=== PATIENT | male | born 1950 | race Caucasian/White ===

== ENCOUNTER → 2020-02-01 10:45 | Outpatient (BNVA) | payer MEDICARE, MEDICAID, SELFPAY | PROVIDERS: Family Provider Urology; PCP Student in an Organized Health Care Education/Training Program; Visit Provider Urology | DX: C61 Malignant neoplasm of prostate (principal); G80.9 Cerebral palsy, unspecified | CPT/HCPCS: 81001; 84153 ==

== ENCOUNTER → 2020-08-02 10:45 | Outpatient (BNVA) | payer MEDICARE, MEDICAID, SELFPAY | PROVIDERS: Family Provider Urology; PCP Student in an Organized Health Care Education/Training Program; Visit Provider Urology | DX: C61 Malignant neoplasm of prostate (principal) | CPT/HCPCS: 81003; 84153 ==

== ENCOUNTER → 2021-02-07 11:15 | Outpatient (BNVA) | payer MEDICARE, MEDICAID, SELFPAY | PROVIDERS: Family Provider Urology; PCP Student in an Organized Health Care Education/Training Program; Visit Provider Urology | DX: C61 Malignant neoplasm of prostate (principal); N39.9 Disorder of urinary system, unspecified | CPT/HCPCS: 81003; 84153 ==

== ENCOUNTER 2021-08-12 09:16 | Outpatient (CLI) | payer MEDICARE, MEDICAID, SELFPAY | END 2021-08-12 09:17 | disposition home or self-care (01) | LOC: LAB 09:20 | PROVIDERS: PCP Student in an Organized Health Care Education/Training Program; Visit Provider Urology | DX: C61 Malignant neoplasm of prostate (principal) | CPT/HCPCS: 81003; 84153 ==

== ENCOUNTER → 2021-12-12 10:27 | Outpatient (BNVA) | payer MEDICARE, MEDICAID, SELFPAY | PROVIDERS: PCP Student in an Organized Health Care Education/Training Program; Visit Provider Urology | DX: C61 Malignant neoplasm of prostate (principal); N39.3 Stress incontinence (female) (male); G80.9 Cerebral palsy, unspecified; N52.32 Erectile dysfunction following radical cystectomy | CPT/HCPCS: 81003; 84153 ==

== ENCOUNTER → 2022-06-09 13:15 | Outpatient (BNVA) | payer MEDICARE, MEDICAID, SELFPAY | PROVIDERS: PCP Student in an Organized Health Care Education/Training Program; Visit Provider Student in an Organized Health Care Education/Training Program | DX: S76.102A Unspecified injury of left quadriceps muscle, fascia and tendon, initial encounter; X58.XXXA Exposure to other specified factors, initial encounter; G80.9 Cerebral palsy, unspecified | CPT/HCPCS: 99203 ==

== ENCOUNTER 2022-06-16 11:47 | Outpatient (CLI) | payer MEDICARE, MEDICAID, SELFPAY ==
[2022-06-16 12:56] LABS: Prostate Specific AG Urology 9.87 ng/mL (0-4)
== END 2022-06-16 11:48 | disposition home or self-care (01) ==
LOC: LAB 11:52
PROVIDERS: PCP Student in an Organized Health Care Education/Training Program; Visit Provider Urology
DX: C61 Malignant neoplasm of prostate (principal); R31.0 Gross hematuria; N30.40 Irradiation cystitis without hematuria; G80.9 Cerebral palsy, unspecified; N39.3 Stress incontinence (female) (male); N52.31 Erectile dysfunction following radical prostatectomy
CPT/HCPCS: 52000; 81003; 84153; 87086; 88112; 99214

== ENCOUNTER 2022-06-23 15:37 | Oncology outpatient (recurring) (ONCR) | payer MEDICARE, MEDICAID, SELFPAY | END 2022-06-23 23:59 | disposition home or self-care (01) | LOC: ONCMED 15:43 | PROVIDERS: PCP Student in an Organized Health Care Education/Training Program; Visit Provider Internal Medicine Hematology & Oncology | DX: Z85.46 Personal history of malignant neoplasm of prostate (principal); R97.21 Rising PSA following treatment for malignant neoplasm of prostate; Z92.3 Personal history of irradiation; Z90.79 Acquired absence of other genital organ(s) | CPT/HCPCS: 99204 ==

== ENCOUNTER → 2022-08-04 12:57 | Outpatient (BNVA) | payer MEDICARE, MEDICAID, SELFPAY | PROVIDERS: PCP Student in an Organized Health Care Education/Training Program; Visit Provider Student in an Organized Health Care Education/Training Program | DX: S76.102A Unspecified injury of left quadriceps muscle, fascia and tendon, initial encounter (principal); X58.XXXA Exposure to other specified factors, initial encounter; G80.9 Cerebral palsy, unspecified | CPT/HCPCS: 99213 ==

== ENCOUNTER → 2022-08-22 08:06 | Outpatient (BNVA) | payer MEDICARE, MEDICAID, SELFPAY | PROVIDERS: PCP Student in an Organized Health Care Education/Training Program; Visit Provider Student in an Organized Health Care Education/Training Program | DX: G80.9 Cerebral palsy, unspecified (principal); S76.101A Unspecified injury of right quadriceps muscle, fascia and tendon, initial encounter; X58.XXXA Exposure to other specified factors, initial encounter | CPT/HCPCS: 99214 ==

== ENCOUNTER 2022-09-29 13:02 | Oncology outpatient (recurring) (ONCR) | payer MEDICARE, MEDICAID, SELFPAY ==
[2022-09-29 13:33] LABS: Basophils # 0.1 10^3/uL (0.0-0.1); Basophils % 0.6 %; Eosinophils # 0.3 10^3/uL (0.0-0.8); Eosinophils % 3.5 %; Hematocrit 47.9 % (42.0-52.0); Hemoglobin 16.5 g/dL (11.7-16.6); Lymphocytes # 1.8 10^3/uL (0.8-4.8); Lymphocytes % 21.5 %; Mean Corpuscular HGB Conc 34.4 g/dL (30.0-36.0); Mean Corpuscular Hemoglobin 32.7 pg (28.0-34.0); Mean Corpuscular Volume 94.9 fl (80-94); Mean Platelet Volume 9.7 fL (7.4-10.4); Monocytes # 0.7 10^3/uL (0.2-0.9); Monocytes % 8.8 %; Neutrophils # 5.39 10^3/uL (1.8-7.7); Neutrophils % 65.4 %; Nucleated Red Blood Cells % 0 %; Platelet Count 288 10^3/cmm (130-400); Red Blood Count 5.05 10^6/uL (4.1-5.3); Red Cell Distribution Width 12.8 % (12.1-15.1); White Blood Count 8.3 10^3/uL (4.0-10.0)
[2022-09-29 14:01] LABS: Alanine Aminotransferase 21 U/L (0-41); Alkaline Phosphatase 150 U/L (40-130); Anion Gap 13.9 (5-19); Aspartate Amino Transferase 22 U/L (0-40); Blood Urea Nitrogen 5 mg/dL (8-23); Calcium 9.2 mg/dL (8.5-10.5); Carbon Dioxide 24 mmol/L (22-29); Chloride 98 mmol/L (98-107); Globulin 2.4 g/dL (1.3-4.6); Glucose 99 mg/dL (65-115); Osmolality Calculated 271 mOsm/kg (285-295); Potassium 3.9 mmol/L (3.5-5.1); Sodium 132 mmol/L (136-145); Testosterone Total 259.9 ng/dL (193-740); Total Bilirubin 0.5 mg/dL (0.15-1.2); Total Protein 6.4 g/dL (6.6-8.7)
== END 2022-10-21 23:59 | disposition home or self-care (01) ==
PROVIDERS: PCP Student in an Organized Health Care Education/Training Program; Visit Provider Internal Medicine Hematology & Oncology
DX: C61 Malignant neoplasm of prostate (principal); C79.51 Secondary malignant neoplasm of bone; R91.1 Solitary pulmonary nodule; R19.09 Other intra-abdominal and pelvic swelling, mass and lump; Z79.52 Long term (current) use of systemic steroids; Z79.818 Long term (current) use of other agents affecting estrogen receptors and estrogen levels; Z79.899 Other long term (current) drug therapy; Z92.21 Personal history of antineoplastic chemotherapy; Z92.3 Personal history of irradiation
CPT/HCPCS: 36415; 80053; 84153; 84403; 85025; 99214

== ENCOUNTER 2024-04-14 10:38 | Oncology outpatient (recurring) (ONCR) | payer MEDICARE, MEDICAID, SELFPAY ==
[2024-04-14 11:11] LABS: Basophils % 0.3 %; Eosinophils # 0.4 10^3/uL (0.0-0.8); Eosinophils % 3.5 %; Hematocrit 45.9 % (37-53); Lymphocytes # 1.3 10^3/uL (0.8-4.8); Mean Corpuscular HGB Conc 34.2 g/dL (30-55); Mean Corpuscular Hemoglobin 32.2 pg (27-33); Mean Corpuscular Volume 94.1 fl (82-101); Mean Platelet Volume 9.3 fL (7.4-10.4); Monocytes # 0.6 10^3/uL (0.2-0.9); Monocytes % 4.6 %; Neutrophils # 10.19 10^3/uL (1.8-7.7); Neutrophils % 81.2 %; Nucleated Red Blood Cells % 0 %; Platelet Count 347 10^3/cmm (157-399); Red Blood Count 4.88 10^6/uL (3.85-5.65); White Blood Count 12.56 10^3/uL (3.29-11.43)
[2024-04-14 11:46] LABS: Alanine Aminotransferase 23 U/L (0-41); Albumin Level 3.9 g/dL (3.5-5.2); Alkaline Phosphatase 162 U/L (40-130); Anion Gap 19.8 (5-19); Aspartate Amino Transferase 20 U/L (0-40); Blood Urea Nitrogen 10 mg/dL (8-23); Calcium 8.6 mg/dL (8.5-10.5); Carbon Dioxide 22 mmol/L (22-29); Chloride 101 mmol/L (98-107); Creatinine Clr Calc Pharmacy 71.6247; Globulin 3.1 g/dL (1.3-4.6); Glucose 116 mg/dL (65-115); Osmolality Calculated 286 mOsm/kg (285-295); Potassium 4.8 mmol/L (3.5-5.1); Sodium 138 mmol/L (136-145); Testosterone Total 469.8 ng/dL (193-740); Total Bilirubin 0.3 mg/dL (0.15-1.2)
== END 2024-04-23 23:59 | disposition home or self-care (01) ==
PROVIDERS: PCP Student in an Organized Health Care Education/Training Program; Visit Provider Internal Medicine Medical Oncology
DX: C61 Malignant neoplasm of prostate (principal); N50.89 Other specified disorders of the male genital organs; R39.198 Other difficulties with micturition; Z92.3 Personal history of irradiation
CPT/HCPCS: 36415; 76857; 76870; 80053; 84153; 84403; 85025; 99214

== ENCOUNTER 2024-04-14 12:14 | Outpatient (CLI) | payer MEDICARE, MEDICAID, SELFPAY ==
--- NOTE | 2024-04-14 15:45 | US_ITS ---
WS: [id number] TESTICULAR ULTRASOUND HISTORY: bilateral scrotal swelling COMPARISON: PET/CT 09/19/2022 TECHNIQUE: Real-time and color Doppler imaging or utilized to perform a testicular ultrasound. Right testicle: 2.3 cm x 3.6 cm x 1.6 cm. Mild heterogeneity throughout the testicle. No mass. Very little color Doppler is demonstrated within the central testicle. There is normal color Doppler in the periphery. No significant hydrocele. Right epididymis: Normal epididymis with no increased vascularity. Left testicle: 1.9 cm x 2.8 cm x 1.5 cm. Mildly heterogeneous testicle. No mass. Very little color Doppler is demonstrated within the central testicle. Only flow identified in the periphery. No significant hydrocele. Left epididymis: Poorly visualized epididymis. There is diffuse bilateral scrotal wall thickening. [employer] Supervisor was concerned for inguinal hernia con taining GI tract. The imaging submitted does not support this. On this imaging I cannot confirm there is a scrotal hernia containing GI tract. US/US scrotum [id number] IMPRESSION: 1. Very limited and suboptimal evaluation of the scrotum. 2. Very limited color Doppler within the central portion of each testicle. Per ipheral Doppler is demonstrated. This can be seen with poor imaging technique v ersus partial or intermittent torsion. No mass. 3. Diffuse mild scrotal wall thickening. 4. [employer] Plant Supervisor described scrotal hernia containing bowel. The imaging does not support hernia containing bowel. There may be an omental hernia. 5. Recommendation: Short-term follow-up scrotal ultrasound to better demonstra te possible scrotal wall hernia containing GI tract and color Doppler interroga tion of the testicles.
--- NOTE | 2024-04-14 15:45 | US_ITS ---
WS: [id number] URINARY BLADDER ULTRASOUND HISTORY: prostate cancer; difficulty voiding COMPARISON: None available. Urinary bladder is well distended. No intraluminal filling defect. No free fluid adjacent to the urin sydni bladder. Bladder Wall Thickness: 0.3 cm. Bladder Prevoid: 6.9 cm x 7.0 cm x 7.1 cm. Prevoid volume: 180.7 ml. Postvoid volume: 32 ml. US/US bladder [id number] IMPRESSION: 1. No mass in the urinary bladder. 2. Minimal post void residual. No significant residual after voiding.
== END 2024-04-14 12:15 | disposition home or self-care (01) ==
PROVIDERS: PCP Student in an Organized Health Care Education/Training Program; Visit Provider Internal Medicine Medical Oncology
DX: C61 Malignant neoplasm of prostate (principal); R39.198 Other difficulties with micturition; N50.89 Other specified disorders of the male genital organs; R93.813 Abnormal radiologic findings on diagnostic imaging of testicles, bilateral
CPT/HCPCS: 76857; 76870

== ENCOUNTER 2024-04-28 09:39 | Oncology outpatient (recurring) (ONCR) | payer MEDICARE, MEDICAID, SELFPAY | END 2024-05-23 23:59 | disposition home or self-care (01) | LOC: ONCMED 09:39 | PROVIDERS: PCP Student in an Organized Health Care Education/Training Program; Visit Provider Internal Medicine Medical Oncology | DX: C61 Malignant neoplasm of prostate (principal); Z92.3 Personal history of irradiation | CPT/HCPCS: 99215 ==

== ENCOUNTER 2024-07-01 08:41 | Oncology outpatient (recurring) (ONCR) | payer MEDICARE, MEDICAID, SELFPAY ==
[2024-07-01 09:23] LABS: Basophils % 0.5 %; Eosinophils # 0.2 10^3/uL (0.0-0.8); Hematocrit 46.9 % (37-53); Lymphocytes # 0.9 10^3/uL (0.8-4.8); Lymphocytes % 10.5 %; Mean Corpuscular HGB Conc 33.9 g/dL (30-55); Mean Corpuscular Hemoglobin 31.9 pg (27-33); Mean Corpuscular Volume 94.2 fl (82-101); Monocytes # 0.5 10^3/uL (0.2-0.9); Monocytes % 6.2 %; Neutrophils # 6.94 10^3/uL (1.8-7.7); Neutrophils % 80.6 %; Nucleated Red Blood Cells % 0 %; Platelet Count 271 10^3/cmm (157-399); Red Blood Count 4.98 10^6/uL (3.85-5.65); Red Cell Distribution Width 12.6 % (12.1-15.1)
[2024-07-01 09:47] LABS: Alanine Aminotransferase 16 U/L (0-41); Albumin Level 4.1 g/dL (3.5-5.2); Alkaline Phosphatase 114 U/L (40-130); Anion Gap 14.4 (5-19); Aspartate Amino Transferase 27 U/L (0-40); Blood Urea Nitrogen 9 mg/dL (8-23); Calcium 8.7 mg/dL (8.5-10.5); Carbon Dioxide 25 mmol/L (22-29); Chloride 100 mmol/L (98-107); Creatinine Clr Calc Pharmacy 63.8326; Globulin 2.6 g/dL (1.3-4.6); Glucose 106 mg/dL (65-115); Lactate Dehydrogenase 161 U/L (135-225); Osmolality Calculated 279 mOsm/kg (285-295); Potassium 4.4 mmol/L (3.5-5.1); Sodium 135 mmol/L (136-145); Testosterone Total 396.2 ng/dL (193-740); Total Bilirubin 0.5 mg/dL (0.15-1.2); Total Protein 6.7 g/dL (6.6-8.7)
== END 2024-07-23 23:59 | disposition home or self-care (01) ==
PROVIDERS: PCP Student in an Organized Health Care Education/Training Program; Visit Provider Internal Medicine Hematology & Oncology
DX: C61 Malignant neoplasm of prostate (principal); Z92.3 Personal history of irradiation; G80.9 Cerebral palsy, unspecified; Z99.3 Dependence on wheelchair; K40.90 Unilateral inguinal hernia, without obstruction or gangrene, not specified as recurrent
CPT/HCPCS: 36415; 80053; 83615; 84153; 84403; 85025; 99214